=== PATIENT | male | born 2000 | race Caucasian/White ===

== ENCOUNTER 2025-07-17 21:19 | Emergency (ER) | payer SELFPAY | END 2025-07-17 22:43 | disposition home or self-care (01) | LOC: BURERS 21:19 | DX: S62.012A Displaced fracture of distal pole of navicular [scaphoid] bone of left wrist, initial encounter for closed fracture (principal); W01.0XXA Fall on same level from slipping, tripping and stumbling without subsequent striking against object, initial encounter | CPT/HCPCS: 29125; 99283 ==